=== PATIENT | female | born 1965 | race Caucasian/White ===

== ENCOUNTER → 2017-07-27 | Outpatient (CLI) | payer OTHER ==
[~2017-07-27] MED LIST: FEXO60TA24 PO; LEVO50TA PO; MAGN400T7 PO
== END | disposition home or self-care (01) ==
LOC: CFH 07:15
PROVIDERS: ATTEND Family Medicine
DX: Z12.31 Encounter for screening mammogram for malignant neoplasm of breast (principal)
CPT/HCPCS: 77063; 77067

== ENCOUNTER 2019-07-02 08:28 | Outpatient (CLI) | payer OTHER ==
[~2019-07-02 08:28] MED LIST changes: -MAGN400T7 PO; +MAGN400T9 PO
== END 2019-07-02 23:59 | disposition home or self-care (01) ==
LOC: CFH 08:28
PROVIDERS: ATTEND Family Medicine
DX: Z12.31 Encounter for screening mammogram for malignant neoplasm of breast (principal)
CPT/HCPCS: 77063; 77067